=== PATIENT | female | born 1945 | race American Indian/Alaskan Native ===

== ENCOUNTER 2018-06-29 09:42 | Outpatient (CLI) | payer MEDICARE ==
--- NOTE | 2018-06-29 12:47 | Mammography Report ---
BONE DEXA:06/29/18 09:42:00 CLINICAL: Postmenopausal. COMPARISON: 10/18/14 and 10/18/12 TECHNIQUE: Two site bone DEXA performed on an Hologic scanner. FINDINGS: The average BMD of the lumbar spine L1-L4 is 1.168g/cm squared with a T-score of +1.1 and a Z-score of +2.6. This compares to 1.196g/cm squared on the last exam and represents a -2.4% change from the previous study and -2.2% change from baseline.. The average BMD of the left hip is 0.965g/cm squared with a T-score of +0.2 and a Z-score of +0.8. This compares to 0.989g/cm squared on the last exam and represents a -2.4% change from the previous study and a -2.7% change from baseline. IMPRESSION: 1. WHO classification: Normal with average fracture risk based on both spine and left hip measurements. 2. A modest decline in spine and left hip BMD compared to previous exams. RECOMMENDATION: Clinical correlation and routine screening. DEFINITIONS: BMD = Bone Mineral Density T-score = BMD related to mean peak bone mass of young adult (mean expressed in Standard Deviation) Z-score = Age matched BMD expressed in SD World Health Organization (WHO) Diagnostic Criteria Normal T-score > -1 SD Osteopenia T-score between -1 and -2.4 SD Osteoporosis T-score -2.5 SD or below NOTE: BMD is not the only risk factor for fracture; also consider factors such as the patient's age, risk of falling, previous osteoporotic fracture, family history of osteoporotic fractures, current smoker, and low body weight. Z-scores are not calculated if >80 years of age.
== END 2018-06-29 09:43 | disposition home or self-care (01) ==
LOC: MAMMO 09:42
PROVIDERS: ATTEND Family Medicine
DX: Z13.820 Encounter for screening for osteoporosis (principal); Z78.0 Asymptomatic menopausal state; F17.210 Nicotine dependence, cigarettes, uncomplicated
CPT/HCPCS: 77080

== ENCOUNTER 2021-03-24 08:55 | Outpatient (CLI) | payer MEDICARE | END 2021-03-24 08:56 | disposition home or self-care (01) | LOC: ECHO 08:55 | PROVIDERS: ATTEND Family Medicine | DX: I08.3 Combined rheumatic disorders of mitral, aortic and tricuspid valves (principal) | CPT/HCPCS: 93306 ==

== ENCOUNTER 2021-10-09 09:54 | Outpatient (CLI) | payer MEDICARE ==
--- NOTE | 2021-10-09 12:17 | Mammography Report ---
DEXA BONE DENSITY SCAN INDICATION / CLINICAL INFORMATION: Z13.820. 76 years Female COMPARISON: 06/29/2018 LUMBAR SPINE, L1-L4: - Bone mineral density (BMD) = 1.155 g/cm2. - T-score = 1.0 - Z-score = 2.7 Change (%) since most recent prior (if available): -1.1 LEFT HIP, TOTAL : - Bone mineral density (BMD) = 0.947 g/cm2. - T-score = 0.0 - Z-score = 0.8 Change (%) since most recent prior (if available): -1.8 IMPRESSION: 1. WHO Classification: Normal bone density. Fracture Risk: Not Increased. 2. 10-Year Fracture Risk (FRAX) = Major Osteoporotic Not reported.% / Hip: Not reported.% FRAX generally not reported for patients with normal or osteoporotic BMD, in nae-otwjweg-thgqgny kolby ents younger than age 50, or in patients undergoing pharmacotherapy BMD Reporting Guidelines (ISCD, 2015) BMD Reporting in Postmenopausal Women and in Men Age 50 and Older - T-scores are preferred. - The WHO densitometric classification is applicable. BMD Reporting in Females Prior to Menopause and in Males Younger Than Age 50 - Z-scores, not T-scores, are preferred. This is particularly important in children. - A Z-score of -2.0 or lower is defined as below the expected range for age, and a Z-score above -2.0 is within the expected range for age. - Osteoporosis cannot be diagnosed in men under age 50 on the basis of BMD alone. - The WHO diagnostic criteria may be applied to women in the menopausal transition. http://www.iscd.org/official-positions/8448-xake-vreovyqm-positions-adult/ Signer Name: Jasiel Jansen DO Signed: 10/09/2021 12:12 PM Workstation Name: [id number]
== END 2021-10-09 09:55 | disposition home or self-care (01) ==
LOC: MAMMO 09:54
PROVIDERS: ATTEND Family Medicine
DX: Z13.820 Encounter for screening for osteoporosis (principal); Z78.0 Asymptomatic menopausal state
CPT/HCPCS: 77080